=== PATIENT | female | born 1995 | race Caucasian/White ===

== ENCOUNTER 2023-08-08 12:23 | Emergency (ER) | payer MEDICAID, SELFPAY ==
[2023-08-08 12:31] VITALS: BP 145/94; PULSE 70; RESP 18; TEMP 36.9; O2SAT 99
--- NOTE | 2023-08-08 13:00 | DI.CT_ITS ---
Exam(s) CT RENAL COLIC WO EXAM: CT RENAL COLIC WO CLINICAL HISTORY: left flank pain, known stone. TECHNIQUE: Imaging Protocol: Axial computed tomography images with coronal and sagittal reformatted images were created and reviewed. CONTRAST MATERIAL: Noncontrast COMPARISON: No exams were available for comparison FINDINGS: ABDOMEN: Lung Bases: Normal where visualized. Liver: Enlarged. Mild hepatic steatosis. No measurable mass. Gallbladder and biliary tract: No radiodense calculus or dilation. Pancreas: Normal density, no calcifications or inflammatory process. Spleen: Normal. Kidneys: Left kidney mildly edematous.. 5 millimeter stone seen in upper left ureter causing mild hy dronephrosis. No additional calculi are identified. No perinephric collection. No masses seen. Adrenal glands: No masses seen. Abdominal Aorta: Abdominal portion non-dilated. Soft tissues: Unremarkable. PELVIS: Bladder: Symmetric distention, no gross wall thickening. No evidence of stones.No visible mass. Bowel: No obstruction or bowel wall thickening. Appendix normal. Normal quantity of stool. Reproductive: Unremarkable. IUD in place. Peritoneal cavity: No ascites, collection or mesenteric inflammatory response. Bones: Unremarkable for age.. IMPRESSION: Mild hydronephrosis secondary to a 5 millimeter stone in the upper left ureter. Findings called to Dr. Morgan of the emergency department. RADIATION DOSE DELIVERED: !Error Total DLP DATA REPOSITORY: All CT scans at this facility are submitted to the National Radiology Data Registry (NRDR) Dose Index Registry (DIR) with the [employer] (ACR). RADIATION OPTIMIZATION: All CT scans at this facility use at least one of these dose optimization te chniques: automated exposure control; mA and/or kV adjustment per patient size (includes targeted exa ms where dose is matched to clinical indication); or iterative reconstruction.
[2023-08-08] MEDS: Ketorolac 30 MG/ML VIAL IVP (13:19)
[2023-08-08] MEDS: Normal Saline 1,000 ML 150 ML IV (13:19)
[2023-08-08] MEDS: Ondansetron 4 MG/2 ML VIAL IVP (13:20)
--- NOTE | 2023-08-08 14:14 | W.ED.GENAD ---
HPI General Stated Complaint: FlankPain Mode of arrival: ambulatory. STEFFANY: 3 Date/Time Provider Initiated Documentation: 08/08/23 12:30. Limitations to Documentation: no limitations. Information obtained by: patient. HPI Narrative: 28-year-old female with history of recently diagnosed kidney stone left ureter at [facility] about 1 week ago, presents with severe left flank pain. Patient notes that she was on vacation and developed severe left flank pain and and was seen in the emergency department and diagnosed with a large 6 mm stone. They recommended hospitalization and she declined. She notes pain improved over the week but then returned recently and is now severe. She has no associated hematuria or dysuria. No fevers. Related Data Home Medications Medication Instructions Recorded Confirmed albuterol sulfate 90 mcg/actuation 2 inh inhalation Q4H PRN 08/08/23 08/08/23 aerosol inhaler (ProAir HFA) fluticasone propionate 110 2 inh inhalation BID 08/08/23 08/08/23 mcg/actuation HFA aerosol inhaler (Flovent HFA) ibuprofen 800 mg tablet (IBU) 800 mg PO Q8H 08/08/23 08/08/23 levofloxacin 750 mg tablet 750 mg PO DAILY #5 tabs 08/08/23 morphine 15 mg tablet,extended 15 mg PO Q4H PRN 08/08/23 08/08/23 release (MS Contin) ondansetron 4 mg disintegrating 4 mg PO TID PRN 08/08/23 08/08/23 tablet tamsulosin 0.4 mg capsule (Flomax) 0.4 mg PO DAILY 08/08/23 08/08/23 Previous Rx's Medication Instructions Recorded levofloxacin 750 mg tablet 750 mg PO DAILY #5 tabs 08/08/23 Allergies Allergy/AdvReac Type Severity Reaction Status Date / Time Penicillins AdvReac Unknown Unverified 08/08/23 14:48 pcn Allergy Severe Anaphylaxis Uncoded 08/08/23 14:48 Review of Systems All systems reviewed & are unremarkable except as noted in HPI and below Constitutional Constitutional: Denies fever(s) Gastrointestinal Gastrointestinal: Reports abdominal pain (left upper quadrant) and Denies vomiting Genitourinary Genitourinary: Reports as per HPI PFSH All Active Problems (Updated 08/08/23 @ 15:27 by Phan Morgan MD) Left ureteral stone (Acute) Hydronephrosis with ureteral calculus (Acute) Social History Smoking/Tobacco Use Status: Current every day Tobacco Type: cigarettes Years smoked: 15 Tobacco: How many years used: 15 Smoking risk assessment performed?: Yes Alcohol Intake: never Drug use: Rarely Substance use type: marijuana Details: smoked marijuana last night Housing: apartment Do you feel safe at home: Yes Do you feel safe in your relationship?: Yes Exam Const General: cooperative and uncomfortable Orientation: alert HENMT Mouth: moist mucous membranes Eyes Conjunctivae: normal conjunctivae Sclera: normal sclerae Neck Neck: trachea midline and supple Resp Auscultation: clear to auscultation bilaterally, no rales, no rhonchi and no wheezes Cardio Rate: regular rate and not tachycardic Rhythm: regular rhythm GI Palpation: soft, not firm, no guarding, no masses, not rigid and tender in the LUQ Auscultation: normal bowel sounds Skin General skin exam: no rashes or lesions noted Neuro General: patient alert, patient awake and tone normal Extrem General: no edema Psych Appearance: grossly normal Mental Status: mental status grossly normal Course Vital Signs Vital signs: Vital Signs Temperature 36.9 C 08/08/23 12:31 Pulse 70 08/08/23 12:31 Respiratory Rate 18 08/08/23 12:31 Blood Pressure 145/94 H 08/08/23 12:31 Pulse Oximetry 99 08/08/23 12:31 Temperature 36.9 C 08/08/23 12:31 Temperature Source Oral 08/08/23 12:31 Pulse 70 08/08/23 12:31 Respiratory Rate 18 08/08/23 12:31 Respiratory Effort Normal, Non-Labored 08/08/23 12:38 Blood Pressure 145/94 H 08/08/23 12:31 Pulse Oximetry 99 08/08/23 12:31 Oxygen Delivery Method Room Air 08/08/23 12:31 Oxygen Flow Rate 0 08/08/23 12:31 Pain Level 10 08/08/23 13:19 Medical Decision Making 1440?28-year-old female recently diagnosed with large kidney stone, here with recurrent left upper abdomen and flank pain. Patient is afebrile and hemodynamically stable. She does have tenderness in her left upper abdomen but otherwise abdominal exam is benign. Outside hospital medical records were obtained from [facility] ED visit 08/02/[address] of the abdomen and pelvis with mild left hydroureteronephrosis proximal to a 6 mm obstructing proximal ureter stone. Regional hepatic steatosis. Fecalization of several loops of small bowel suggest slow motility/this mobility. She was diagnosed with urolithiasis and discharged home with morphine, ibuprofen, ondansetron and Flomax. Urine culture resulted postvisit growing greater than 100,000 E. coli susceptible to multiple medications including nitrofurantoin, Bactrim, cephalosporins and fluoroquinolones. Concern for persistent stone. Repeat CT of the abdomen pelvis performed and was interpreted by radiology: 5 mm proximal left ureteral stone with mild hydronephrosis. I called and spoke with Dr. Teixeira, discussed ED presentation and course, he recommends pain control and will see the patient in follow-up. He notes his pain cannot be controlled recommends admission to hospitalist service. 1525 -- Patient was reassessed and pain significantly improved to near resolution after Dilaudid. All results and plan was discussed with the patient. She requests discharge. Usual customary discharge instructions were reviewed. She understands importance of timely follow-up with urology. I will refill prescription for Levaquin. Patient was encouraged to return immediately for any worsening or new concerning symptoms. Quality:SDOH Health Related Social Needs: Health related social needs risk of homeless Discharge Plan Disposition Patient Disposition: Home Condition: Stable Discharge Details Clinical Impression: Hydronephrosis with ureteral calculus, Left ureteral stone Primary Care Provider: Kiko Mujica ED Provider: Phan Morgan Home Meds and New Rx's Prescriptions: Continued fluticasone propionate [Flovent HFA] 110 mcg/actuation HFA aerosol inhaler 2 inh inhalation BID albuterol sulfate [ProAir HFA] 90 mcg/actuation HFA aerosol inhaler 2 inh inhalation Q4H PRN tamsulosin [Flomax] 0.4 mg capsule 0.4 mg PO DAILY ibuprofen [IBU] 800 mg tablet 800 mg PO Q8H morphine [MS Contin] 15 mg tablet extended release 15 mg PO Q4H PRN ondansetron 4 mg tablet,disintegrating 4 mg PO TID PRN levofloxacin 750 mg tablet 750 mg PO DAILY Qty: 5 0RF Discharge Instructions Instructions: Kidney Stones (ED) Additional Instructions: Please follow-up with Dr. Teixeira early next week for procedure to help remove stone. Please continue to take antibiotic as prescribed. Please contact your primary care physician to arrange follow-up. Return to the ER immediately for any worsening or new concerning symptoms. Referrals: [facility] [Provider Group] Kiko Mujica [Primary Care Provider] -
[2023-08-08 14:35] LABS: Abs Immature Grans 0.03 10^3/uL (0.0-0.06); Absolute Basophil Count 0.06 10^3/uL (0.0-0.2); Absolute Eosinophil Count 0.44 10^3/uL (0.0-0.7); Absolute Lymphocyte Count 0.84 10^3/uL (1.2-3.4); Absolute Monocyte Count 0.47 10^3/uL (0.1-0.8); Absolute Neutrophil Count 7.05 10^3/uL (1.2-6.7); Basophils % 0.7; Eosinophils % 4.9; HCT 39.8 % (36.0-46.0); HGB 13.5 g/dL (11.2-15.7); Immature Grans % 0.3; Lymphocytes % 9.4; MCH 29.6 pg (27.0-33.0); MCHC 33.9 % (32.0-36.0); MCV 87 fL (80-95); MPV 9.2 fL (8.0-11.0); Monocytes % 5.3; Neutrophils % 79.4; Platelet Count 306 10^3/uL (130-400); RBC 4.56 10^6/uL (3.93-5.22); RDW 12.4 % (11.7-14.6); RDW-SD 39.8 fL; WBC 8.89 10^3/uL (4.4-10.8)
[2023-08-08] MEDS: HYDROmorphone 2 MG/ML SYR (14:44)
[2023-08-08 14:52] LABS: ALT 62 U/L (14-59); AST 26 U/L (15-37); Albumin 3.2 g/dL (3.4-5.0); Alkaline Phosphatase 50 U/L (46-116); Anion Gap 7.2 mmol/L (3-11); BUN 8 mg/dL (7-18); Bilirubin, Total 0.3 mg/dL (0.2-1.0); CO2 26.8 mmol/L (21.0-32.0); CREATININE 1.2 mg/dL (0.55-1.02); Calcium 8.6 mg/dL (8.5-10.1); Chloride 106 mmol/L (98-107); Estimated GFR 62.45 (mL/min/1.73m2); Glucose 111 mg/dL (74-106); Potassium 3.6 mmol/L (3.5-5.1); Sodium 140 mmol/L (136-145); Total Protein 6.8 g/dL (6.4-8.2)
--- NOTE | 2023-08-08 15:30 | NUR.NOTE ---
Nursing Note:urology referral
[2023-08-08 16:11] LABS: Bilirubin Negative (Negative); Blood Small (Negative); Clarity Sl Cloudy (Clear); Glucose Negative (Negative); Ketones Negative (Negative); Leukocyte Esterase Negative (Negative); Nitrite Negative (Negative); Specific Gravity >= 1.030 (1.005-1.025); Urobilinogen 0.2 mg/dL (Up to 0.2); pH 5.5 (5-8)
[2023-08-08 16:21] LABS: Bacteria Negative HPF (Negative); C & S Indicated? No; Crystals Many Calcium Oxalate HPF (Negative); Epithelial Cells Many HPF (Negative); Mucus Heavy (Negative)
== END 2023-08-08 16:01 | disposition home or self-care (01) ==
PROVIDERS: Emergency Provider Student in an Organized Health Care Education/Training Program; PCP Nurse Practitioner Family
DX: N13.2 Hydronephrosis with renal and ureteral calculous obstruction (principal); F17.210 Nicotine dependence, cigarettes, uncomplicated
CPT/HCPCS: 80053; 96374; 96375; 99284; 74176; 81003; 81015; 85025; J1170; J1885; J2405